=== PATIENT | female | born 1965 | race African-American/Black ===

== ENCOUNTER 2016-04-21 13:56 | Observation (INO) | payer OTHER ==
--- NOTE | ~2016-04-21 | HP ---
History And Physical [id number] [place]. [address] NAME: GALLO SEVILLA : 65 STATUS : ADM IN [facility]#: [id number] AGE: 50 ADM/REG DATE : 04/21/16 MR#: [id number] REPORT SERV DATE: 04/21/16 DICTATED BY: JACOBY WANG DATE: 04/21/16 REPORT STATUS : Draft TRANSCRIBED BY: MODTaryn DATE: 04/21/16 DATE OF ADMISSION: 04/21/2016 REASON FOR ADMISSION: This is a cardiology admit H and P regarding chest pain. HISTORY OF PRESENT ILLNESS: Ms. Sevilla is a pleasant 50-year-old woman with a history of chest discomfort. She sees Dr. Edd Dave. In January of 2016, she was diagnosed with pulmonary embolus. She did not have evidence for DVT, and the source of the embolus is unclear. She was placed on Eliquis. She has continued to have episodes of chest discomfort, somewhat atypical. She underwent a myocardial perfusion imaging study, which was negative. She has been back to see Dr. Dave and plans were made for her to undergo cardiac catheterization. She was taken off her Eliquis in preparation for cardiac catheterization this past Friday, but presented today with similar complaints of chest discomfort. It does again seem to be somewhat atypical and that it is not associated with activity, but she does described a substernal chest pressure. She has a very strong family history of coronary artery disease with several family members on her father's side including her father, who had early myocardial infarction and early secondary to myocardial infarction. She denies any other significant CAD risk factors. PAST MEDICAL HISTORY: 1. Notable for an unexplained pulmonary embolus, treated with Eliquis. Currently, Eliquis on hold in preparation for cardiac catheterization. 2. Unexplained chest discomfort. SURGICAL HISTORY: Notable for shoulder surgery, gallbladder surgery, knee surgery. FAMILY HISTORY: Notable for several members on her father's side, who had premature coronary artery disease including her father. SOCIAL HISTORY: Negative for tobacco or alcohol. Negative for illicit drug use. REVIEW OF SYSTEMS: As noted above. All other systems reviewed and negative. PHYSICAL EXAMINATION: VITAL SIGNS: Blood pressure 132/70, pulse 70, respirations 16. GENERAL: Well developed, well nourished. HEENT: No icterus. Good dentition. NECK: Supple. No masses or thyromegaly LUNGS: Breathing comfortably. No rales or wheezes. COR: Normal S1, S2. No S3 or S4. No murmurs, clicks, rubs. No JVD ABD: Soft, nondistended, nontender, no hepatosplenomegaly. EXT: No clubbing, cyanosis or edema. Peripheral pulses 2+/=bilaterally. SKIN: Warm and dry. No visible lesions. MS: Chest wall without deformity, no obvious clavicular fractures. NEURO/PSYCH: Oriented X3. No anxiety or depression. History And Physical [address] [address] NAME: GALLO SEVILLA : 65 STATUS : ADM IN [facility]#: [id number] AGE: 50 ADM/REG DATE : 04/21/16 MR#: [id number] REPORT SERV DATE: 04/21/16 DICTATED BY: JACOBY WANG DATE: 04/21/16 REPORT STATUS : Draft TRANSCRIBED BY: MODL DATE: 04/21/16 LABORATORY VALUES: EKG shows normal sinus rhythm. Normal intervals. No evidence for ischemia infarction or chamber hypertrophy. Laboratory values unremarkable. D-dimer is negative. IMPRESSION: The patient is admitted with chest discomfort. She has a long standing history of chest discomfort that is atypical, but does have a very strong family history of premature coronary artery disease. She has a history of pulmonary embolism of uncertain etiology. No deep venous thrombosis and was placed on Eliquis for this reason. The Eliquis is currently on hold with plans for cardiac catheterization. I am going to start heparin today. We will place the patient on schedule for cardiac catheterization tomorrow. Further recommendations based on the results of cardiac catheterization. ERIKA/MODL Jacoby Wang M.D. / [id number] CC: Ashley De La Cruz N.P.
[2016-04-21 13:37] LABS: BASOPHILS 0.5 %; BASOPHILS ABSOLUTE 0.02 10/3/uL (0.0-0.16); EOSINOPHILS 2.1 %; EOSINOPHILS ABSOLUTE 0.09 10/3/uL (0.0-0.53); ER CBC TAT 0 Hrs 05 Mins; HEMATOCRIT 38.6 % (36.0-48.0); IMMATURE GRANULOCYTES 0.2 %; IMMATURE GRANULOCYTES ABSOLUTE 0.01 10/3/uL (0.0-0.11); LYMPHOCYTES ABSOLUTE 1.64 10/3/uL (0.67-4.30); MEAN CORPUS HGB CONC 33.7 g/dL (32.0-36.0); MEAN CORPUSCULAR HEMOGLOB 29.7 pg (26.0-34.0); MEAN CORPUSCULAR VOLUME 88.1 fL (80-100); MEAN PLATELET VOLUME 9.5 fL (9.2-13.0); MONOCYTES 7.9 %; MONOCYTES ABSOLUTE 0.34 10/3/uL (0.21-1.20); NEUTROPHILS 51.3 %; NEUTROPHILS ABSOLUTE 2.22 10/3/uL (2.02-8.40); PLATELET COUNT 277 10/3/uL (150-400); RBC DISTRIBUTION WIDTH 13.5 % (12.0-16.0); RED CELL COUNT 4.38 10/6/uL (4.0-5.6); WHITE BLOOD CELLS 4.3 10/3/uL (4.5-10.5)
[2016-04-21 13:38] LABS: MANUAL DIFF NO %
[2016-04-21 13:52] LABS: INTERNATIONAL NORMAL RATI 1.6 UNITS (-); PARTIAL THROMBO TIME 26.9 SEC (22.5-37.2); PROTIME (NOT ORD) 19.1 SEC (12.0-14.5)
[2016-04-21 13:53] LABS: BUN (BLOOD UREA NITROGEN) 11 MG/DL (6-23); CALCIUM, SERUM 9.2 MG/DL (8.5-10.4); CHEST PAIN PROFILE TAT 0 Hrs 21 Mins; CHLORIDE, SERUM 105 MMOL/L (96-112); CO2 (CARBON DIOXIDE) 28 MMOL/L (24-34); GFR AFRICAN AMERICAN 100 ML/MIN (>=60); GFR NON AFRICAN AMERICAN 86 ML/MIN (>=60); GLUCOSE, SERUM 79 MG/DL (60-99); POTASSIUM, SERUM 3.6 MMOL/L (3.5-5.3); SODIUM, SERUM 143 MMOL/L (135-148); TROPONIN I <0.02 NG/ML (<0.05)
[2016-04-21 13:55] LABS: D-DIMER QUANTITATIVE < 0.27 ug/mLFEU (< 0.50)
[~2016-04-21 13:56] MED LIST: BENTYL10 PO; LEVOTHYROXIN25 MCG PO; NORV10 PO; PROZAC PO; SUCR PO; XARELTO20 MG PO
[2016-04-21] MEDS ORDERED: BENTYL10 PO (14:35)
[2016-04-21] MEDS ORDERED: XARELTO20 MG PO (14:35)
[2016-04-21] MEDS ORDERED: LEVOTHROID25 MCG PO (14:36)
[2016-04-21] MEDS ORDERED: PROZAC PO (14:36)
[2016-04-21] MEDS ORDERED: NORV10 PO (14:37)
[2016-04-21] MEDS ORDERED: SUCR PO (14:37)
[2016-04-21] MEDS ORDERED: ADVIL PO (14:38)
[2016-04-22 04:17] LABS: BASOPHILS 0.4 %; BASOPHILS ABSOLUTE 0.02 10/3/uL (0.0-0.16); EOSINOPHILS 2.5 %; EOSINOPHILS ABSOLUTE 0.12 10/3/uL (0.0-0.53); HEMATOCRIT 36.2 % (36.0-48.0); HEMOGLOBIN 12.2 g/dL (12.0-16.0); IMMATURE GRANULOCYTES 0.2 %; IMMATURE GRANULOCYTES ABSOLUTE 0.01 10/3/uL (0.0-0.11); LYMPHOCYTES 39.3 %; LYMPHOCYTES ABSOLUTE 1.92 10/3/uL (0.67-4.30); MEAN CORPUS HGB CONC 33.7 g/dL (32.0-36.0); MEAN CORPUSCULAR HEMOGLOB 30.1 pg (26.0-34.0); MEAN CORPUSCULAR VOLUME 89.4 fL (80-100); MEAN PLATELET VOLUME 9.6 fL (9.2-13.0); MONOCYTES 6.5 %; MONOCYTES ABSOLUTE 0.32 10/3/uL (0.21-1.20); NEUTROPHILS 51.1 %; PLATELET COUNT 256 10/3/uL (150-400); RBC DISTRIBUTION WIDTH 13.4 % (12.0-16.0); RED CELL COUNT 4.05 10/6/uL (4.0-5.6); WHITE BLOOD CELLS 4.9 10/3/uL (4.5-10.5)
[2016-04-22 04:19] LABS: MANUAL DIFF NO %
[2016-04-22 04:22] LABS: PARTIAL THROMBO TIME 61.3 SEC (22.5-37.2)
[2016-04-22 04:37] LABS: BUN (BLOOD UREA NITROGEN) 11 MG/DL (6-23); CALCIUM, SERUM 8.9 MG/DL (8.5-10.4); CHLORIDE, SERUM 104 MMOL/L (96-112); CHOL/HDL RATIO(NOT ORDER) 1.9 (0-5); CHOLESTEROL 146 MG/DL (< 200); CO2 (CARBON DIOXIDE) 27 MMOL/L (24-34); CREATININE 0.89 MG/DL (0.55-1.02); GFR AFRICAN AMERICAN 88 ML/MIN (>=60); GFR NON AFRICAN AMERICAN 76 ML/MIN (>=60); GLUCOSE, SERUM 92 MG/DL (60-99); HDL CHOLESTEROL 75 MG/DL (> 49); LDL CHOLESTEROL 61 MG/DL (< 130); NON-HDL CHOLESTEROL 71 MG/DL (< 160); POTASSIUM, SERUM 4.2 MMOL/L (3.5-5.3); SODIUM, SERUM 141 MMOL/L (135-148); TROPONIN I <0.02 NG/ML (<0.05)
[2016-04-22 04:39] LABS: TRIGLYCERIDE 51 MG/DL (< 150)
[2016-04-23] MEDS ORDERED: XARELTO20 MG PO (08:43)
== END 2016-04-23 11:59 | disposition home or self-care (01) ==
LOC: ER 13:56 → 7NO 15:04
PROVIDERS: Emergency Medicine; Internal Medicine Cardiovascular Disease
DX: I20.0 Unstable angina (principal); E03.9 Hypothyroidism, unspecified; F32.9 Major depressive disorder, single episode, unspecified; I26.99 Other pulmonary embolism without acute cor pulmonale; Z90.49 Acquired absence of other specified parts of digestive tract; Z98.890 Other specified postprocedural states; Z88.0 Allergy status to penicillin; Z91.040 Latex allergy status; Z79.899 Other long term (current) drug therapy; Z79.1 Long term (current) use of non-steroidal anti-inflammatories (NSAID); Z90.710 Acquired absence of both cervix and uterus
CPT/HCPCS: 71010; 80048; 80061; 83735; 84484; 84703; 85025; 85379; 85610; 85730; 93005; 93458; 96372; 99152; 99285; A9270-GY; C1769; C1887; C1894; G0378; J1170; J2250; J2405; J3010; Q9967

== ENCOUNTER 2016-06-10 13:42 | Observation (INO) | payer OTHER ==
--- NOTE | ~2016-06-10 | HP ---
History And Physical [id number] [place]. [address] NAME: GALLO SEVILLA : 65 STATUS : ADM Kendy PAT#: [id number] AGE: 50 ADM/REG DATE : 06/10/16 MR#: [id number] REPORT SERV DATE: 06/11/16 DICTATED BY: ZEYAD GALLAGHER DATE: 06/11/16 REPORT STATUS : Draft TRANSCRIBED BY: MODTaryn DATE: 06/11/16 DATE OF ADMISSION: 06/10/2016 CHIEF COMPLAINT: A 50-year-old female presenting with headaches and new-onset seizures/convulsions. HISTORY OF PRESENTING ILLNESS: The patient's history was obtained through careful interview with the patient, daughter, brother, sister, and other family coupled with review of [facility] medical records. The patient has been noticing worsening of chronic intermittent headaches over the last few days. On the day prior to admission, she developed a headache, but then on the day of admission, the headache became quite severe. She describes it as focused mostly behind her right eye, aching quality, that would come and go in its severity, but would escalate to a degree of 20/10 in severity as she describes it. Today, she was at work and was suffering from this headache for about five minutes when "a luis" with strong cologne came by and it made the patient feel ill, and then without any other warning otherwise she apparently collapsed to the ground slumping over. She did not hit her head, but she lost consciousness and began to have seizure-like activity with convulsions. It lasted about 10 minutes until an ambulance came, and then according to the EMS crew, she had another seizure while in the ambulance coming to the hospital. Here in the emergency department, we have witnessed what appears to be absence seizure-like activity that sometimes will last five or 10 minutes at a time where she loses consciousness and will have slight convulsion-like activity in her left hand in particular. This is followed by a very clear postictal stage and lost memory. There has been no loss of bowel or bladder continence. No biting of the tongue. No hemiparesis. No double vision. No dysarthria. There is slight confusion as mentioned after each episode. The patient also becomes quite irritable. No nausea or vomiting. No fevers or chills. No other pain complaints. REVIEW OF SYSTEMS: Otherwise, a 14-point review of systems was obtained and was negative. PAST MEDICAL HISTORY: 1. Pulmonary embolism, on Xarelto. 2. Hypothyroidism. 3. Depression. 4. Hypertension. 5. Elevated cholesterol. 6. Asthma. History And Physical [address] [place]. [address] NAME: GALLO SEVILLA : 65 STATUS : ADM Kendy PAT#: [id number] AGE: 50 ADM/REG DATE : 06/10/16 MR#: [id number] REPORT SERV DATE: 06/11/16 DICTATED BY: ZEYAD GALLAGHER DATE: 06/11/16 REPORT STATUS : Draft TRANSCRIBED BY: BRITTNY DATE: 06/11/16 PAST SURGICAL HISTORY: 1. Cholecystectomy. 2. Hysterectomy. 3. Right knee surgery. 4. Left shoulder surgery x2. 5. Left breast biopsy. ALLERGIES: PENICILLIN, CINNAMON, LATEX, COCONUT. SOCIAL HISTORY: Quit smoking more than 20 years ago. Rare alcohol use. She works at [employer]. She lives alone. Has two children. She is single. She lives in [place], [place]. FAMILY HISTORY: Father at 52 years of age of a heart attack. Brother had heart disease at 26 years of age. CURRENT MEDICATIONS: Include Norvasc 10 mg daily, Bentyl 10 mg p.r.n., EpiPen as needed, Prozac 20 mg p.o. daily, Advil p.r.n., Aleve p.r.n., levothyroxine 25 mcg p.o. daily, Xarelto 20 mg p.o. daily. PHYSICAL EXAMINATION: VITAL SIGNS: Temperature 98.5, pulse 51, blood pressure 179/81, respiratory rate 16, O2 saturation 100% on room air. GENERAL: A pleasant, cooperative female. She is in no acute distress. HEENT: Pupils are equal, round, and reactive to light. No conjunctival pallor. No scleral icterus. Nares are patent. Oropharynx is clear of obstruction. Moist mucous membranes. NECK: Trachea midline. No thyromegaly. LYMPHATIC: No cervical lymphadenopathy. No supraclavicular lymphadenopathy. RESPIRATORY: Clear to auscultation at bases. No wheezes, rales, or rhonchi. Normal respiratory effort. CARDIOVASCULAR: Bradycardic, regular rhythm. No murmurs, rubs, or gallops. No extremity edema is appreciated. NEUROLOGICAL: Cranial nerves 2 through 12 are intact and symmetrical. The patient has 5/5 strength in upper and lower extremities that is symmetrical. ABDOMEN: Soft, nontender, nondistended. Normal bowel sounds auscultated throughout. No organomegaly. DERMATOLOGICAL: Warm and dry. EXTREMITIES: No pallor. No cyanosis. PSYCHIATRIC: Normal affect. Good mood. Alert and oriented x3. LABORATORY DATA: White blood cell count 4.3, hemoglobin 14, hematocrit 40, platelets 283. Sodium 142, potassium 4.0, chloride 106, bicarb 26, BUN 11, creatinine 0.74, glucose 76. Brain natriuretic peptide 7. Urine drug screen negative. Alcohol level negative. Urinalysis shows large leukocyte esterase with 7 white blood cells. Liver enzymes within normal limits. STUDIES: History And Physical [address] [address] NAME: GALLO SEVILLA : 65 STATUS : ADM Kendy PAT#: [id number] AGE: 50 ADM/REG DATE : 06/10/16 MR#: [id number] REPORT SERV DATE: 06/11/16 DICTATED BY: ZEYAD GALLAGHER DATE: 06/11/16 REPORT STATUS : Draft TRANSCRIBED BY: BRITTNY DATE: 06/11/[address] angiogram of the chest shows no pulmonary embolism. 2. CT scan of the brain without contrast shows no acute intracranial process. 3. EKG by my own evaluation shows sinus rhythm, premature atrial complexes. 4. Chest x-ray by my own evaluation shows no acute cardiopulmonary process. ASSESSMENT AND PLAN: 1. Seizures. The patient has been loaded and begun on IV Keppra, IV Vimpat, as well as scheduled IV Ativan. Was seen in the emergency department by Neurology. We will check an MRI of the brain. Check an EEG. check an MRI of the brain. 2. Mild urinary tract infection. Check urine culture. Place on IV Rocephin. 3. History of pulmonary embolism, on Xarelto. 4. Leukopenia. Check HIV screen. KPL/MODL Zeyad Gallagher M.D. / [id number] CC: Ashley Puente N.P.
--- NOTE | ~2016-06-10 | CN ---
Consultation Report [facility] [address] [place]. [address] NAME: GALLO SEVILLA : 65 STATUS : ADM Kendy PAT#: [id number] AGE: 50 ADM/REG DATE : 06/10/16 MR#: [id number] REPORT SERV DATE: 06/11/16 DICTATED BY: DATE: REPORT STATUS : Draft TRANSCRIBED BY: MODL DATE: 06/10/16 NEUROLOGY CONSULTATION DATE OF CONSULTATION: 06/10/2016 REASON FOR CONSULT: Loss of consciousness, unresponsive state, concern for seizure. HISTORY OF PRESENT ILLNESS: This is a 50-year-old female, who presented to [facility] secondary to loss consciousness state. The patient, since this morning, was noted to have increasingly frequent episodes of loss of consciousness episodes where the patient became unresponsive, staring, with episode lasting roughly two minutes and was beginning to be increasingly frequent. The patient has had recent hospital stay on 04/21/2016 secondary to chest pain as well as chest discomfort. The patient has had a history of pulmonary embolus. The patient was subsequently discharged on Xarelto. The patient has not had any recent fever, chills, nausea, vomiting, chest pain, or shortness of breath. Denies any psychosocial stress. The patient does not have any pacemaker placement. Otherwise, family report the patient does complain of some numbness in her right foot, but otherwise, no focal weakness or numbness. Also, the patient was noted to have difficulty ambulating. No other significant trauma or other abnormality was otherwise noted. PAST MEDICAL HISTORY: Significant for pulmonary embolus, was on Eliquis, now is currently on Xarelto. The patient has had recent hospitalization for chest discomfort. No history of seizure disorder or seizure-like activity was otherwise noted. SOCIAL HISTORY: Denies tobacco, alcohol, or recreational drug usage. REVIEW OF SYSTEMS: Negative except for those mentioned in the HPI. ALLERGIES: THE PATIENT REPORTS ALLERGY TO PENICILLIN, CINNAMON, LATEX WELL COCONUT. HOME MEDICATIONS: Consist of amlodipine, Bentyl, EpiPen for prophylaxis, Prozac, Advil, levothyroxine, Aleve, and Xarelto. REVIEW OF SYSTEMS: Negative except for those mentioned in the HPI. PHYSICAL EXAMINATION: VITAL SIGNS: At the time of my evaluation, the patient was noted to have vital signs with T- max of 98.8, heart rate of 51, respirations of 16, and blood pressure of 179/84. GENERAL: The patient is well developed, well nourished, in no acute distress. CARDIOVASCULAR: Regular rate and rhythm. No carotid bruits were otherwise auscultated. PULMONARY: Clear to auscultation bilaterally. NEUROLOGICAL: Generally, the patient is alert and oriented to person, place, year, and Consultation Report [address] [place]. [address] NAME: GALLO SEVILLA : 65 STATUS : ADM Kendy PAT#: [id number] AGE: 50 ADM/REG DATE : 06/10/16 MR#: [id number] REPORT SERV DATE: 06/11/16 DICTATED BY: DATE: REPORT STATUS : Draft TRANSCRIBED BY: BRITTNY DATE: 06/10/16 month. The patient was noted to have two episodes of staring during the evaluation. The patient became responsive with nailbed pressure applied to the left upper extremity. The patient afterwards is able to follow commands and was noted to be mildly agitated. The patient otherwise was noted to have mild dysarthria. No significant aphasia. Follows simple and two-step commands. Intact, registration, difficulty with recall. Cranial nerves 2 through 12, pupils equal, round, and reactive to light. Horizontal eye movement was noted to be intact with intact blink to threat response. Reports symmetrical facial sensation, symmetrical facial expression. Midline tongue. Normal palatal movement. Normal hearing. The patient was noted to have 5/5 bilateral upper extremity strength, 4+ out of 5 bilateral lower extremity strength. At the time of evaluation, the patient was noted to have some ataxia on [id number] examination. The patient was also noted to have mild ataxic gait at the time of evaluation, but is able to stand up on bilateral lower extremities. The patient was noted to have mild decreased reflexes 1+ throughout. Otherwise, reports symmetrical sensation bilaterally. LABORATORY STUDY: Demonstrates sodium 142, potassium 4.0, chloride 106, bicarb 26, BUN of 11, creatinine of 0.74, glucose of 76, calcium of 8.9, magnesium 2.1. White blood cell count of 4.3, hemoglobin of 13.6, hematocrit of 39.7, platelet count of 283. Urinalysis demonstrated large leukocyte esterase and negative nitrite. Urine drug screen is otherwise negative. CT scan of the brain otherwise demonstrated no acute process. IMPRESSION: Encephalopathy. The patient was noted to have frequent episodes of unresponsiveness, witnessed by neurologist with staring episodes. Symptom appeared to be resolved with nailbed pressure applied to the left upper extremity at the time of my evaluation x2. Denies prior history of seizure with seizure-like activity. No previous history of seizure medication usage. No recent fevers or chills and no recent illness. We will obtain MRI of the brain for evaluation. We will obtain laboratory study. We will provide the patient overnight with Ativan 0.5 mg IV q.6 hours. We will hold Ativan for sedation. Meanwhile, we will start the patient on Keppra 1000 mg IV b.i.d. as well as Vimpat 100 mg IV b.i.d. We will obtain EEG study pending EEG result as well as the patient's clinical symptoms. May consider lumbar puncture. RECOMMENDATION: 1. Ativan 0.5 mg IV q.6 hours, hold if sedated. 2. Keppra 1000 mg IV b.i.d. 3. Vimpat 100 mg IV b.i.d. 4. EEG. 5. MRI of the brain without contrast. 6. Ammonia, procalcitonin, TSH, free T4, sedimentation rate, CRP, vitamin B12, and folate. [facility]/MODL Abdullahi Rob Consultation Report [address] [address] NAME: GALLO SEVILLA : 65 STATUS : ADM Kendy PAT#: [id number] AGE: 50 ADM/REG DATE : 06/10/16 MR#: [id number] REPORT SERV DATE: 06/11/16 DICTATED BY: DATE: REPORT STATUS : Draft TRANSCRIBED BY: MODL DATE: 06/10/16 MD Omid / [id number] CC: Ashley Puente N.P.
--- NOTE | ~2016-06-10 | CN ---
Consultation Report [facility] [address] [place]. [address] NAME: GALLO SEVILLA : 65 STATUS : DIS Kendy PAT#: [id number] AGE: 50 ADM/REG DATE : 06/10/16 MR#: [id number] REPORT SERV DATE: 06/12/16 DICTATED BY: DARNELL ESPITIA DATE: 06/12/16 REPORT STATUS : Draft TRANSCRIBED BY: MODL DATE: 06/12/16 PSYCHIATRIC CONSULTATION DATE OF CONSULTATION: 06/12/2016 I reviewed this patient's medical record. I discussed the patient's status with Dr. Macias. HISTORY OF PRESENT ILLNESS: She was admitted after she had an episode of unresponsiveness at work. She had more episodes of unresponsiveness in the ambulance, in our emergency department, and on the floor following her admission. Her in the EEG was not consistent with seizure activity. PAST PSYCHIATRIC HISTORY: She reports that about six years ago, she had a "breakdown" and she was admitted to [facility]. Subsequently, she was followed as an outpatient at [facility] in [place]. She was prescribed Prozac at that time, and she received a group and individual counseling. She was discharged from [facility] after a number of months. She said she thought she did not have any significant stress issues. She said she was having some financial problems because she missed work because of shoulder pain and other physical problems. She said she wants to get on disability. She asks me "we you help me get my disability." SOCIAL HISTORY: She was living alone prior to this admission. She said she now plans to live with her daughter in [place], [place], and this arrangement should relieve much of her financial stress. FAMILY HISTORY: No psychiatric illness. MENTAL STATUS: She was reluctantly cooperative with this examination. She expressed annoyance that she was not told about the psychiatric consultation in advance. Her mood was mildly angry and dysphoric. Her affect was appropriate. Her thinking was logical. She had no delusions. She had no hallucinations. She was oriented to time, place, and person. She demonstrated good recent and remote memory. DIAGNOSIS: Probable conversion disorder. RECOMMENDATIONS: I recommended her return to [facility] for outpatient psychiatric care. She said she could not do this because it would involve her taking time off work and she could not afford to do that. I will sign off. DK/MODL Darnell Espitia M.D. Consultation Report [id number] [place]. [address] NAME: GALLO SEVILLA : 65 STATUS : DIS Kendy PAT#: [id number] AGE: 50 ADM/REG DATE : 06/10/16 MR#: [id number] REPORT SERV DATE: 06/12/16 DICTATED BY: DARNELL ESPITIA DATE: 06/12/16 REPORT STATUS : Draft TRANSCRIBED BY: BRITTNY DATE: 06/12/16 / [id number] CC: Ashley Olivares N.P.
--- NOTE | ~2016-06-10 | DS ---
Discharge Summary [facility] [address] [place]. [address] NAME: GALLO SEVILLA : 65 STATUS : DIS Kendy PAT#: [id number] AGE: 50 ADM/REG DATE : 06/10/16 MR#: [id number] REPORT SERV DATE: 06/13/16 DICTATED BY: JOSEPHINE LEVINE DATE: 06/12/16 REPORT STATUS : Draft TRANSCRIBED BY: MODTaryn DATE: 06/12/16 ADMISSION DATE: 06/10/2016 DISCHARGE DATE: 06/12/2016 DIAGNOSES ON DISCHARGE: 1. Seizure disorder/new-onset atypical seizures for which the patient has been started on Keppra per Neurology. 2. There is also a question of conversion disorder as the patient's atypical seizures are witnessed and the patient becomes confused with decreased responsiveness every so often, but then her EEG was normal. However, given the benefit of doubt, the patient is already on Keppra which is an antiseizure medication started by Neurology. Other diagnoses on discharge are stable and these include: 1. 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 2. History of pulmonary embolism for which the patient is on Xarelto. 3. Hypothyroidism which is stable. 4. Depression for which the patient is on antidepressant medications. 5. Hypertension, stable. 6. Hyperlipidemia, stable. The patient has been started on statin. BRIEF HOSPITAL COURSE: The patient is a 50-year-old female who was brought here from work for altered mental status. She did have a few episodes of unresponsiveness that went on for a few minutes, and the who had brought her said that he had never witnessed anything like this before and hence she was brought here to the ER. The patient was admitted and Neurology consult was promptly obtained. The patient had an EEG while she was having these episodes while in the hospital. The EEG came back normal and the neurologist could not appreciate any typical seizure activity at this time. Even though, given the benefit of doubt, as the patient had these atypical or partial seizures with episodes of a few minutes of unresponsiveness, Neurology started her on Keppra. She has been doing well with the Keppra. Her MRI of the brain did not show any acute stroke, it was completely normal. The patient also had an MRA of the brain and MRA of the neck that also came back completely normal. Hence, this is definitely not a stroke. Hence, the patient is being discharged home with advice to follow up with her neurologist within the next one month and also advised to follow up with PCP in the next one to two weeks. There are few additional medications that the patient is being sent home on besides her home medications, and these include the followin. Aspirin 81 mg once a day. 2. Lipitor 40 mg once a day. 3. Keppra as advised by the neurologist. 4. Bentyl 10 mg p.o. daily as needed for abdominal cramping. 5. Prozac 20 mg once a day. 6. Levothyroxine 25 mcg once a day. 7. Norvasc 10 mg once a day. 8. Xarelto 20 mg p.o. once a day. 9. EpiPen on an as needed basis. Discharge Summary [address] [address] NAME: GALLO SEVILLA : 65 STATUS : DIS Kendy PAT#: [id number] AGE: 50 ADM/REG DATE : 06/10/16 MR#: [id number] REPORT SERV DATE: 06/13/16 DICTATED BY: JOSEPHINE LEVINE DATE: 06/12/16 REPORT STATUS : Draft TRANSCRIBED BY: BRITTNY DATE: 06/12/16 10.The patient has been advised to hold off on the Advil and the naproxen on a daily basis for the headaches. We will let the patient followup with PCP and address these headaches, but regarding the seizures, she will follow up with Neurology within the next one month. I do have the following labs on her which are most recent and upon discharge. On 06/11/2016, her CBC showed a WBC count of 3.6, hemoglobin and hematocrit normal, platelet count of 278. Sedimentation rate came back normal at 22 which is pretty much on the higher limits of normal, but still definitely does not go in favor of any temporal arteritis at this time. The patient had a comprehensive metabolic profile that showed procalcitonin level of 0.05, normal electrolytes, normal BUN and creatinine, normal LFTs, normal folate, B12 levels normal, troponin I levels less than 0.02. The patient also had ammonia levels that came back normal at 29. The patient also had a CTA of the chest when she came in as she has had a history of pulmonary embolism before. The CTA chest showed no evidence of any pulmonary emboli. The patient's BNP came back normal. The patient also had a urine drug screen that came back negative for all illegal or illicit drugs. HIV was negative or nonreactive and urine culture shows 75,000 colony count per mL of contaminants and so no UTI. As mentioned above, MRI, MRA of the brain, MRA of the neck are all negative for any acute stroke, and brain CT scan also is negative for any acute stroke and completely normal. Hence, the patient is being discharged home in stable condition. The patient has been advised not to drive while she is on the antiseizure medicines until she is stabilized according to Neurology note. RRA/MODL Josephine Levine M.D. / [id number] CC: Ashley Olivares N.P.
--- NOTE | ~2016-06-10 | EEG ---
Electroencephalogram [address] [id number] [place]. [address] NAME: GALLO SEVILLA : 65 STATUS : ADM Kendy PAT#: [id number] AGE: 50 ADM/REG DATE : 06/10/16 MR#: [id number] REPORT SERV DATE: 06/12/16 DICTATED BY: GUSTAVO ZAMORA DATE: 06/12/16 REPORT STATUS : Draft TRANSCRIBED BY: BRITTNY DATE: 06/12/16 ORDERING PHYSICIAN: Abdullahi Anne MD. INTERPRETING PHYSICIAN: Gustavo Zamora MD, Neurology. EEG NUMBER: [id number]. AGE: 50. REASON FOR EEG: Episodes of "blanking out" prior to the EEG, questionable seizures. The patient was given Ativan 0.5 mg prior to the EEG. MEDICATIONS: Ativan, Vimpat, and Keppra. The 23 surface electrodes, 10-20 international placement was used. The patient was noted to be awake, drowsy, and asleep throughout the study. The background activity consisted of [id number] voltage, well organized 9 to 10 cycles per second located in the posterior head regions. This alpha range activity attenuated well with the eye-opening maneuvers. Slower frequencies in the theta range were noted scattered throughout during drowsiness. No significant asymmetry of cerebral activity was noted. Intermittent sleep spindles and spindling activity were seen which most likely represents medication effect. The patient's home therapy teacher showed sinus rhythm, rate of approximately 74 beats per minute. Photic stimulation did not bring out additional abnormalities, and the patient appeared intermittently restless. Video monitoring was utilized. No abnormal paroxysmal epileptiform activity was seen. During photic stimulation, rare left frontotemporal sharp in appearance waveforms were noted. No true paroxysmal epileptiform activity was seen during this study. IMPRESSION: THIS EEG IS WITHIN NORMAL RANGE FOR AWAKE, DROWSY, AND LIGHT STAGES OF SLEEP. MODERATE AMOUNT OF SPINDLE ACTIVITY MAY REPRESENT MEDICATION EFFECT. CLINICAL CORRELATION IS RECOMMENDED. ELISEO/BRITTNY Gustavo Zamora MD / [id number] CC: Ashley Olivares N.P.
[~2016-06-10 13:42] MED LIST changes: +ADVIL PO; +LEVOTHROID25 MCG PO
[2016-06-10 13:56] LABS: ASCORBIC ACID (UR NOT ORDER) NEG (NEG); BILIRUBIN, URINE NEGATIVE (NEG); ER URINALYSIS TAT 0 Hrs 13 Mins; KETONE, URINE NEGATIVE (NEG); LEUKOCYTE ESTERASE(NOT OR LARGE (NEG); NITRITE (URINE) NEG (NEG); WBC (NOT ORDERED) (RFLEX) 7 (0-5)
[2016-06-10 14:10] LABS: BASOPHILS 0.5 %; BASOPHILS ABSOLUTE 0.02 10/3/uL (0.0-0.16); EOSINOPHILS 1.4 %; EOSINOPHILS ABSOLUTE 0.06 10/3/uL (0.0-0.53); ER CBC TAT 0 Hrs 03 Mins; HEMATOCRIT 39.7 % (36.0-48.0); HEMOGLOBIN 13.6 g/dL (12.0-16.0); LYMPHOCYTES 33.6 %; LYMPHOCYTES ABSOLUTE 1.44 10/3/uL (0.67-4.30); MEAN CORPUS HGB CONC 34.3 g/dL (32.0-36.0); MEAN CORPUSCULAR HEMOGLOB 29.9 pg (26.0-34.0); MEAN CORPUSCULAR VOLUME 87.3 fL (80-100); MEAN PLATELET VOLUME 9.5 fL (9.2-13.0); MONOCYTES 6.8 %; MONOCYTES ABSOLUTE 0.29 10/3/uL (0.21-1.20); NEUTROPHILS 57.7 %; NEUTROPHILS ABSOLUTE 2.48 10/3/uL (2.02-8.40); PLATELET COUNT 283 10/3/uL (150-400); RBC DISTRIBUTION WIDTH 13.6 % (12.0-16.0); RED CELL COUNT 4.55 10/6/uL (4.0-5.6); WHITE BLOOD CELLS 4.3 10/3/uL (4.5-10.5)
[2016-06-10 14:12] LABS: MANUAL DIFF NO %
[2016-06-10 14:18] LABS: INTERNATIONAL NORMAL RATI 1.6 UNITS (-); PARTIAL THROMBO TIME 26.6 SEC (22.5-37.2); PROTIME (NOT ORD) 18.5 SEC (12.0-14.5)
[2016-06-10 14:21] LABS: AMPHETAMINES (NOT ORD) NEG (NEG); BARBITURATES (NOT ORDERED NEG (NEG); BENZODIAZEPINES (NOT ORD) NEG (NEG); CANNABINOIDS (THC) NEG (NEG); COCAINE (NOT ORDERED) NEG (NEG); OPIATES NEG (NEG); PHENCYCLIDINE(PCP) NEG (NEG); TRICYCLICS NEG (NEG)
[2016-06-10 14:26] LABS: ALBUMIN 3.8 G/DL (3.5-5.0); ALKALINE PHOSPHATASE 102 U/L (45-117); BUN (BLOOD UREA NITROGEN) 11 MG/DL (6-23); CALCIUM, SERUM 8.9 MG/DL (8.5-10.4); CHEST PAIN PROFILE TAT 0 Hrs 19 Mins; CHLORIDE, SERUM 106 MMOL/L (96-112); CO2 (CARBON DIOXIDE) 26 MMOL/L (24-34); CREATININE 0.74 MG/DL (0.55-1.02); GFR AFRICAN AMERICAN 109 ML/MIN (>=60); GFR NON AFRICAN AMERICAN 94 ML/MIN (>=60); GLUCOSE, SERUM 76 MG/DL (60-99); SGOT(AST) 17 U/L (5-40); SGPT(ALT) 21 U/L (5-65); SODIUM, SERUM 142 MMOL/L (135-148); TOTAL BILIRUBIN 0.3 MG/DL (0-1.2); TOTAL PROTEIN 8.3 G/DL (6.0-8.5); TROPONIN I <0.02 NG/ML (<0.05)
[2016-06-10 14:27] LABS: ACETAMINOPHEN LEVEL (TYLENOL) < 2.0 MCG/ML (10.0-20.0); ALCOHOL < 10 MG/DL (0); DIRECT BILIRUBIN 0.1 MG/DL (0.0-0.4); INDIRECT BILIRUBIN(NOT ORDER) 0.2 MG/DL (0.1-0.9); SALICYLATE < 1.7 MG/DL (-)
[2016-06-10] MEDS ORDERED: ALEVE220 MG PO (18:20)
[2016-06-10] MEDS ORDERED: EPIPEN0.3 IM (18:22)
[2016-06-11 06:54] LABS: BASOPHILS 0.3 %; BASOPHILS ABSOLUTE 0.01 10/3/uL (0.0-0.16); EOSINOPHILS 4.8 %; EOSINOPHILS ABSOLUTE 0.17 10/3/uL (0.0-0.53); HEMATOCRIT 37.6 % (36.0-48.0); HEMOGLOBIN 12.5 g/dL (12.0-16.0); IMMATURE GRANULOCYTES 0.3 %; IMMATURE GRANULOCYTES ABSOLUTE 0.01 10/3/uL (0.0-0.11); LYMPHOCYTES 39.5 %; LYMPHOCYTES ABSOLUTE 1.41 10/3/uL (0.67-4.30); MANUAL DIFF NO %; MEAN CORPUS HGB CONC 33.2 g/dL (32.0-36.0); MEAN CORPUSCULAR HEMOGLOB 29.5 pg (26.0-34.0); MEAN CORPUSCULAR VOLUME 88.7 fL (80-100); MEAN PLATELET VOLUME 9.7 fL (9.2-13.0); MONOCYTES 8.7 %; MONOCYTES ABSOLUTE 0.31 10/3/uL (0.21-1.20); NEUTROPHILS 46.4 %; NEUTROPHILS ABSOLUTE 1.66 10/3/uL (2.02-8.40); PLATELET COUNT 278 10/3/uL (150-400); RBC DISTRIBUTION WIDTH 13.6 % (12.0-16.0); RED CELL COUNT 4.24 10/6/uL (4.0-5.6); WHITE BLOOD CELLS 3.6 10/3/uL (4.5-10.5)
[2016-06-11 07:00] LABS: PARTIAL THROMBO TIME 36.2 SEC (22.5-37.2)
[2016-06-11 07:01] LABS: INTERNATIONAL NORMAL RATI 4.1 UNITS (-); PROTIME (NOT ORD) 39.2 SEC (12.0-14.5)
[2016-06-11 07:15] LABS: C-REACTIVE PROTEIN 8.7 MG/L (<8.0)
[2016-06-11 07:37] LABS: A/G RATIO 0.8 (0.7-1.9); ALBUMIN 3.3 G/DL (3.5-5.0); BUN (BLOOD UREA NITROGEN) 11 MG/DL (6-23); CALCIUM, SERUM 8.5 MG/DL (8.5-10.4); CHLORIDE, SERUM 107 MMOL/L (96-112); CO2 (CARBON DIOXIDE) 25 MMOL/L (24-34); FREE T4 0.91 NG/DL (0.76-1.46); GFR AFRICAN AMERICAN 100 ML/MIN (>=60); GFR NON AFRICAN AMERICAN 86 ML/MIN (>=60); GLUCOSE, SERUM 86 MG/DL (60-99); POTASSIUM, SERUM 4.1 MMOL/L (3.5-5.3); SGOT(AST) 15 U/L (5-40); SGPT(ALT) 23 U/L (5-65); SODIUM, SERUM 142 MMOL/L (135-148); TOTAL BILIRUBIN 0.6 MG/DL (0-1.2); TOTAL PROTEIN 7.3 G/DL (6.0-8.5); TROPONIN I <0.02 NG/ML (<0.05)
[2016-06-11 07:38] LABS: ALKALINE PHOSPHATASE 87 U/L (45-117); FOLATE 8.5 NG/ML (>5.2)
[2016-06-11 07:41] LABS: SED RATE 22 MM/HR (0-20)
[2016-06-11 08:27] LABS: PROCALCITONIN <0.05 ng/mL (<0.5)
[2016-06-12 06:08] LABS: INTERNATIONAL NORMAL RATI 1.8 UNITS (-)
[2016-06-12 16:11] LABS: BASOPHILS 0.3 %; BASOPHILS ABSOLUTE 0.01 10/3/uL (0.0-0.16); EOSINOPHILS 3.4 %; EOSINOPHILS ABSOLUTE 0.13 10/3/uL (0.0-0.53); HEMATOCRIT 36.9 % (36.0-48.0); HEMOGLOBIN 12.5 g/dL (12.0-16.0); IMMATURE GRANULOCYTES 0.3 %; IMMATURE GRANULOCYTES ABSOLUTE 0.01 10/3/uL (0.0-0.11); LYMPHOCYTES 43.2 %; LYMPHOCYTES ABSOLUTE 1.66 10/3/uL (0.67-4.30); MEAN CORPUS HGB CONC 33.9 g/dL (32.0-36.0); MEAN CORPUSCULAR HEMOGLOB 29.8 pg (26.0-34.0); MEAN CORPUSCULAR VOLUME 87.9 fL (80-100); MEAN PLATELET VOLUME 9.6 fL (9.2-13.0); MONOCYTES 9.4 %; MONOCYTES ABSOLUTE 0.36 10/3/uL (0.21-1.20); NEUTROPHILS 43.4 %; NEUTROPHILS ABSOLUTE 1.67 10/3/uL (2.02-8.40); PLATELET COUNT 283 10/3/uL (150-400); RBC DISTRIBUTION WIDTH 13.6 % (12.0-16.0); WHITE BLOOD CELLS 3.8 10/3/uL (4.5-10.5)
[2016-06-12 16:14] LABS: MANUAL DIFF NO %
[2016-06-12 16:26] LABS: BUN (BLOOD UREA NITROGEN) 11 MG/DL (6-23); CALCIUM, SERUM 8.5 MG/DL (8.5-10.4); CHLORIDE, SERUM 108 MMOL/L (96-112); CO2 (CARBON DIOXIDE) 28 MMOL/L (24-34); CREATININE 0.73 MG/DL (0.55-1.02); GFR AFRICAN AMERICAN 111 ML/MIN (>=60); GFR NON AFRICAN AMERICAN 96 ML/MIN (>=60); GLUCOSE, SERUM 82 MG/DL (60-99); POTASSIUM, SERUM 3.9 MMOL/L (3.5-5.3); SODIUM, SERUM 144 MMOL/L (135-148)
[2016-06-12] MEDS ORDERED: ASAB PO (17:02)
[2016-06-12] MEDS ORDERED: LIPITOR40 PO (17:03)
== END 2016-06-12 18:00 | disposition home or self-care (01) ==
LOC: ER 13:42 → CDU1 19:43 → 1SO 20:24
PROVIDERS: Emergency Medicine; Hospitalist
DX: R56.9 Unspecified convulsions (principal); N39.0 Urinary tract infection, site not specified; D72.819 Decreased white blood cell count, unspecified; E03.9 Hypothyroidism, unspecified; F32.9 Major depressive disorder, single episode, unspecified; I10 Essential (primary) hypertension; E78.00 Pure hypercholesterolemia, unspecified; J45.909 Unspecified asthma, uncomplicated; Z86.711 Personal history of pulmonary embolism; Z90.49 Acquired absence of other specified parts of digestive tract; Z90.710 Acquired absence of both cervix and uterus; Z98.890 Other specified postprocedural states; Z88.0 Allergy status to penicillin; Z91.040 Latex allergy status; Z88.8 Allergy status to other drugs, medicaments and biological substances; Z87.891 Personal history of nicotine dependence; Z82.49 Family history of ischemic heart disease and other diseases of the circulatory system; Z79.899 Other long term (current) drug therapy; Z79.82 Long term (current) use of aspirin
CPT/HCPCS: 70450; 70544; 70548; 70553; 71010; 71275; 80048; 80053; 80076; 80305; 80307; 81001; 82140; 82607; 82746; 82962; 83735; 83880; 84145; 84439; 84443; 84484; 85025; 85379; 85610; 85652; 85730; 86140; 87086; 87389; 93005; 93306; 95819; 96365; 96375; 96376; 99291; A9270-GY; C9254; G0378; J1953; Q9967